=== PATIENT | female | born 1950 | race Caucasian/White ===

== ENCOUNTER 2021-03-16 11:10 | Emergency (ER) | payer MEDICARE, BC, OTHER ==
--- NOTE | 2021-03-16 11:40 | EDM.PDOC ---
ED HPI GENERAL MEDICAL PROBLEM - General Chief Complaint: General Stated Complaint: HIGH BP-DIZZY Time Seen by Provider: 03/16/21 11:20 Source of Information: Reports: Patient History Limitations: Reports: No Limitations - History of Present Illness INITIAL COMMENTS - FREE TEXT/NARRATIVE: Patient states this morning while sitting down in the rocking chair about 9:00 she had a little bit of dizziness lasted a few seconds maybe a few minutes she checked her blood pressure which was elevated 147/127 she waited a few minutes and rechecked it and it was within normal limits. She states the dizziness feels like she is moving a little bit instead of the room. She denies any headache dizziness or vision changes no ringing or roaring no trouble with balance. She states she has had some sinus issues last couple days secondary to mowing the yard. She denies any history of hypertension vertigo She has no other complaints at this time Onset: Sudden Duration: Hour(s): Improves with: Reports: None Worsens with: Reports: None Associated Symptoms: Denies: Confusion, Chest Pain, Cough, Diaphoresis, Headaches, Loss of Appetite, Nausea/Vomiting, Shortness of Breath, Weakness - Related Data Allergies Allergy/AdvReac Type Severity Reaction Status Date / Time amoxicillin Allergy Hives Verified 03/16/21 11:27 cefuroxime [From Ceftin] Allergy Rash Verified 03/16/21 11:26 Penicillins Allergy Hives Verified 03/16/21 11:27 Home Meds: Home Meds . [No Known Home Meds] 03/16/21 [History] Past Medical History - Past Health History Medical/Surgical History: Denies Medical/Surgical History Other Neuro History: cervical myelopathy Social & Family History - Tobacco Use Tobacco Use Status *Q: Never Tobacco User ED ROS GENERAL - Review of Systems Review Of Systems: See Below Constitutional: Reports: No Symptoms. Denies: Malaise, Weakness, Fatigue HEENT: Denies: Ear Discharge, Ear Pain, Eye Discharge, Eye Pain, Glasses, Hearing Loss, Nose Pain, Sinus Problem, Vertigo, Vision Change Respiratory: Reports: No Symptoms Cardiovascular: Reports: Blood Pressure Problem. Denies: Chest Pain, Dyspnea on Exertion, Edema, Lightheadedness, Palpitations, Syncope Endocrine: Reports: No Symptoms GI/Abdominal: Reports: No Symptoms : Reports: No Symptoms Musculoskeletal: Reports: No Symptoms Skin: Reports: No Symptoms Neurological: Reports: Dizziness. Denies: Confusion, Headache, Numbness, Paresthesia, Pre-Existing Deficit, Seizure, Syncope, Tingling, Trouble Speaking, Weakness, Change in Speech Psychiatric: Reports: No Symptoms Hematologic/Lymphatic: Reports: No Symptoms Immunologic: Reports: No Symptoms ED EXAM, GENERAL - Physical Exam Exam: See Below Exam Limited By: No Limitations General Appearance: Alert, WD/WN, No Apparent Distress Eye Exam: Bilateral Eye: EOMI, Normal Inspection, Nystagmus (left lat ), PERRL Ears: Normal External Exam, Normal Canal, Hearing Grossly Normal, Normal TMs, Other (mild AF left ear ) Nose: Normal Inspection, Normal Mucosa, No Blood Throat/Mouth: Normal Inspection, Normal Lips, Normal Teeth, Normal Gums, Normal Oropharynx, Normal Voice, No Airway Compromise Head: Atraumatic, Normocephalic Neck: Normal Inspection, Supple, Non-Tender, Full Range of Motion. No: Carotid Bruit Respiratory/Chest: No Respiratory Distress, Lungs Clear, Normal Breath Sounds, No Accessory Muscle Use, Chest Non-Tender Cardiovascular: Normal Peripheral Pulses, Regular Rate, Rhythm, No Edema, No Gallop, No JVD, No Murmur, No Rub. No: JVD GI/Abdominal: Normal Bowel Sounds, Soft, Non-Tender, No Organomegaly, No Distention, No Abnormal Bruit Back Exam: Normal Inspection, Full Range of Motion Extremities: Normal Inspection, Normal Range of Motion, Non-Tender, No Pedal Edema, Normal Capillary Refill Neurological: Alert, Oriented, CN II-XII Intact, Normal Cognition, Normal Gait, Normal Reflexes, No Motor/Sensory Deficits, Other (=supervisor type photography 5/5 ue le normal rhomberg ) Psychiatric: Normal Affect, Normal Mood Skin Exam: Warm, Dry, Intact, Normal Color, No Rash Lymphatic: No Adenopathy #1 Interpretation Rhythm: NSR [place]: Normal P-Wave: Present QRS: Normal ST-T: Normal QT: Normal EKG Interpretation Comments: NSR neg acute findings Course - Vital Signs Text/Narrative:: cbc bmp ekg Lab work within normal limits EKG normal sinus rhythm no acute findings blood pressure rechecked it was 157/87 patient states she feels better she is okay with discharge and treatment follow-up with her primary care provider Last Recorded V/S: Last Vital Signs Temp 36.8 C 03/16/21 11:10 Pulse 78 03/16/21 11:10 Resp 16 03/16/21 11:10 BP 161/90 H 03/16/21 11:10 Pulse Ox 97 03/16/21 11:10 - Orders/Labs/Meds Orders: Active Orders 24 hr Category Date Time Status EKG 12 Lead [EKG Documentation Completion] [RC] URGENT Care 03/16/21 11:32 Ordered Labs: Laboratory Tests 03/16/21 03/16/21 Range/Units 11:50 11:50 WBC 4.9 (4.0-10.0) x10^3/uL RBC 4.84 (4.00-5.50) x10^6/uL Hgb 13.8 (12.0-16.0) g/dL Hct 41.2 (33.0-47.0) % MCV 85.1 (78.0-93.0) fL MCH 28.5 (26.0-32.0) pg MCHC 33.5 (32.0-36.0) g/dL RDW Coeff of Christina 13.6 (10.0-15.0) % Plt Count 246 (130-400) x10^3/uL Neut % (Auto) 55.9 (50.0-80.0) % Lymph % (Auto) 31.8 (25.0-50.0) % Orange % (Auto) 8.8 (2.0-11.0) % Eos % (Auto) 2.9 (0.0-4.0) % Baso % (Auto) 0.6 (0.2-1.2) % Sodium 141 (136-145) mmol/L Potassium 4.0 (3.5-5.1) mmol/L Chloride 104 (98-107) mmol/L Carbon Dioxide 25 (21-32) mmol/L Anion Gap 16.0 H (5-15) mmol/L BUN 18 (7-18) mg/dL Creatinine 1.0 (0.55-1.02) mg/dL Est Cr Clr Drug Dosing TNP Estimated GFR (MDRD) 54 Glucose 105 H (70-99) mg/dL Calcium 9.4 (8.5-10.1) mg/dL Departure - Departure Time of Disposition: 12:30 Disposition: Home, Self-Care 01 Condition: Good Clinical Impression: Dizziness - Discharge Information *PRESCRIPTION DRUG MONITORING PROGRAM REVIEWED*: No *COPY OF PRESCRIPTION DRUG MONITORING REPORT IN PATIENT SHAUN: No Forms: ED Department Discharge Sepsis Event Note (ED) - Evaluation Sepsis Screening Result: No Definite Risk - Focused Exam Vital Signs: Vital Signs Temp Pulse Resp BP Pulse Ox 03/16/21 11:10 36.8 C 78 16 161/90 H 97 - Problem List & Annotations (1) Dizziness SNOMED Code(s): 267547023, 429077923 Code(s): R42 - DIZZINESS AND GIDDINESS Status: Acute Current Visit: Yes - My Orders Last 24 Hours: My Active Orders 03/16/21 11:32 EKG 12 Lead [EKG Documentation Completion] [RC] URGENT - Assessment/Plan Last 24 Hours: My Active Orders 03/16/21 11:32 EKG 12 Lead [EKG Documentation Completion] [RC] URGENT
[2021-03-16 12:06] LABS: CHLORIDE,CL 104 mmol/L (98-107); SODIUM,NA 141 mmol/L (136-145)
== END 2021-03-16 12:48 | disposition home or self-care (01) ==
LOC: VM.ED 11:10
DX: R42 Dizziness and giddiness (principal); Z88.0 Allergy status to penicillin; Z88.1 Allergy status to other antibiotic agents
CPT/HCPCS: 36415; 80048; 85025; 93005; 99284-25

== ENCOUNTER 2022-03-06 14:11 | Emergency (ER) | payer MEDICARE, BC, OTHER ==
[2022-03-06] MEDS ORDERED: Sodium Chloride 0.9% 10 ML Syringe FLUSH PRN (14:31)
[2022-03-06] MEDS: GI Cocktail Oral Solution 30 ML PO ONE (14:46)
[2022-03-06 15:17] LABS: ANION GAP 13.9 mmol/L (5-15); CHLORIDE,CL 103 mmol/L (98-107); SODIUM,NA 138 mmol/L (136-145)
[2022-03-06 15:41] LABS: PTT,PARTIAL THROMBOPLSTIN TIME 26.3 SEC (20.5-30.9)
== END 2022-03-06 16:00 | disposition home or self-care (01) ==
LOC: VM.ED 14:11
DX: S83.92XA Sprain of unspecified site of left knee, initial encounter (principal); R10.13 Epigastric pain; Z88.0 Allergy status to penicillin; Z88.1 Allergy status to other antibiotic agents
CPT/HCPCS: 36415; 80053; 83735; 84100; 84443; 84484; 85025; 85610; 85730; 86140; 93005; 99284-25; A9270-GY

== ENCOUNTER 2025-02-09 06:27 | Day surgery (SDC) | payer MEDICARE, BC, OTHER ==
[~2025-02-09 06:27] MED LIST: Brimonidine 0.2% Ophth Soln 5 ML Bottle ONE; Dexamethasone/Neomycin/Polymyxin B Ophth Oint 3.5 GM Tube ONE; Lidocaine 1% 2 ML ONE; Phenyleprhine/Ketorolac 4 ML Vial ONE; Povidone-Iodine 5% Sterile Ophth Soln 30 ML Bottle ONE; Proparacaine 0.5% Ophth Soln 15 ML Bottle ONE
[2025-02-09] MEDS: Phenylephrine 2.5% Ophth Soln 2 ML Bot EYERT SCH (06:35)
[2025-02-09] MEDS: Tropicamide 1% Ophth Soln 15 ML Bottle EYERT ONE (06:35)
[2025-02-09] MEDS: Cyclopentolate 1% Opth Soln 2 ML Bottle EYERT SCH (06:36)
[2025-02-09] MEDS: Moxifloxacin 0.5% Ophth Soln 3 ML Bottle EYERT ONE ×2 (06:57→08:09)
[2025-02-09] MEDS ORDERED: Midazolam 1 MG/ML 2 ML SDV ONE (07:34)
[2025-02-09] MEDS: Povidone-Iodine 5% Sterile Ophth Soln 30 ML Bottle EYERT ONE (08:09)
[2025-02-09] MEDS: Balanced Salt Solution Ophth Irrig 500 ML Bottle IOCULAR ONE (08:09)
[2025-02-09] MEDS: Lidocaine 1% PF 2 ML SDV INFILT ONE (08:10)
[2025-02-09] MEDS: Chondroitin Sulfate/Hyaluronate Sodium Ophth Inj 0.5 ML Syringe IOCULAR ONE (08:10)
[2025-02-09] MEDS: Phenyleprhine/Ketorolac 4 ML Vial OP ONE (08:10)
[2025-02-09] MEDS: Brimonidine 0.2% Ophth Soln 5 ML Bottle EYERT ONE (08:11)
[2025-02-09] MEDS: Dexamethasone/Neomycin/Polymyxin B Ophth Oint 3.5 GM Tube EYERT ONE (08:11)
[2025-02-09] MEDS: acetaZOLAMIDE 500 MG Cap.ER PO ONE (08:30)
== END 2025-02-09 08:52 | disposition home or self-care (01) ==
LOC: VM.SDS 06:27
PROVIDERS: ATTEND Ophthalmology
DX: H25.811 Combined forms of age-related cataract, right eye (principal); Z88.8 Allergy status to other drugs, medicaments and biological substances; Z88.0 Allergy status to penicillin; Z87.891 Personal history of nicotine dependence; Z79.899 Other long term (current) drug therapy
CPT/HCPCS: 00142; 66984; 99100; A9270; J1097; J2003; J2250; J3490